=== PATIENT | female | born 1995 | race Caucasian/White ===

== ENCOUNTER 2018-12-27 06:51 | Outpatient (CLI) | payer OTHER ==
--- NOTE | 2018-12-27 08:32 | ULT ---
OB ULTRASOUND: INDICATION: anatomy. FINDINGS: Intrauterine . Gestational age by ultrasound 3 weeks 3 days. BPD 20 weeks 3 days HC 20 weeks 3 days AC 20 weeks 6 days FL 19 weeks 6 days EFW: 348 gm, 20 weeks 4 days. Placenta: Anterior. Presentation: Vertex. heart rate: 146 b.p.m. Amniotic fluid: Within normal range. GENE: 12.9 cm. Cervix length 3.4 cm. Anatomy: Intracranial contents, 4-chamber heart, stomach, kidneys, cord insertion, bladder, spine, lips and no se, extremities, and 3-vessel cord were all imaged. No abnormality identified. IMPRESSION: A 20-week 3-day gestation by ultrasound measurement. No abnormality identified. POS: [facility]
== END 2018-12-27 06:52 | disposition home or self-care (01) ==
LOC: SCSULT 06:51 → BICULT 06:52
PROVIDERS: ATTEND Family Medicine
DX: Z34.92 Encounter for supervision of normal pregnancy, unspecified, second trimester (principal); Z3A.20 20 weeks gestation of pregnancy
CPT/HCPCS: 76805

== ENCOUNTER 2019-01-25 15:15 | Outpatient (CLI) | payer OTHER ==
--- NOTE | 2019-01-25 16:13 | ULT ---
Limited obstetrical ultrasound: 01/25/2019 COMPARISON: 12/27/2018 HISTORY: Evaluate 24 week gestation TECHNIQUE: Multiplanar grayscale sonographic imaging of the gravid uterus obtained. FINDINGS: There is a single intrauterine gestation. presentation is breech. Cervical length is approximately 3.5 cm. Placenta located anteriorly, with no evidence for previa or abruption. heart rate is 149 bpm. Amniotic fluid index is 16.8 cm. The visualized anatomy is unremarkable. anatomy is not fully assessed on this examination and was fully assessed on the 12/27/2018 exam. biometry: BPD 5.9 cm, 24 weeks 2 days Head circumference 22.9 cm, 25 weeks 0 days Abdominal circumference 20.1 cm, 25 weeks 0 days Femur length 4.2 cm, 23 weeks 6 days The average age based on ultrasound is 24 weeks 2 days. Estimated date of delivery is 05/13/2019. Estimated weight is 700 g +/- 1 102 g. The nose/lips, kidneys, stomach, and urinary bladder are unremarkable IMPRESSION: Single intrauterine gestation as detailed above. Transcribed Date/Time: 01/25/2019 4:31 PM
== END 2019-01-25 15:16 | disposition home or self-care (01) ==
LOC: BICULT 15:15
PROVIDERS: ATTEND Family Medicine
DX: Z34.92 Encounter for supervision of normal pregnancy, unspecified, second trimester (principal); Z3A.24 24 weeks gestation of pregnancy
CPT/HCPCS: 76815

== ENCOUNTER 2019-04-12 06:36 | Outpatient (CLI) | payer OTHER ==
--- NOTE | 2019-04-12 07:38 | ULT ---
Obstetric sonogram HISTORY: Macrosomia. Low-lying placenta. FINDINGS: Multiple transabdominal sonographic views of the pelvis show a single intrauterine gestatio n in cephalic presentation. Cervix is closed and 4.0 cm. No gross intracranial abnormalities are apparent. Grade 1 placenta is anterior without evidence of previa. Heart motion at 130 bpm. Amniotic fluid index 15.5. Advanced age limits anatomic detail. Measurements are as follows: Biparietal diameter 35 weeks 0 days. Head circumference 35 weeks 4 days. Abdominal circumference 36 weeks 3 days. Femur length 34 weeks 0 days. Estimated weight 5 lbs. 15 oz. (2702 g). IMPRESSION: Single viable intrauterine gestation. Estimated gestational age based on today's sonogram 35 weeks 2 days. Anterior placenta. No evidence of previa.
== END 2019-04-12 06:37 | disposition home or self-care (01) ==
LOC: BICULT 06:36
PROVIDERS: ATTEND Family Medicine
DX: O36.63X0 Maternal care for excessive fetal growth, third trimester, not applicable or unspecified (principal); Z3A.35 35 weeks gestation of pregnancy
CPT/HCPCS: 76816

== ENCOUNTER 2019-05-04 15:01 | Inpatient (IN) | payer OTHER ==
[~2019-05-04 15:01] MED LIST: Bupivacaine PF 0.5% 30 ML VIAL ONE
[2019-05-04 15:59] VITALS: BMI 40.5
[2019-05-04] MEDS ORDERED: Fentanyl 4 mcg/Bup 0.1% Cadd 100 ML ONE (19:04)
[2019-05-04] MEDS ORDERED: Butorphanol Tartrate 1 MG/ML VIAL SLOW IVP PRN (19:05)
[2019-05-04] MEDS ORDERED: Methylergonovine 0.2 MG/ML VIAL IM PRN (19:05)
[2019-05-04] MEDS ORDERED: Ibuprofen 800 MG TAB PO PRN (19:05)
[2019-05-04] MEDS ORDERED: Promethazine HCl 25 MG/ML VIAL IM PRN ×2 (19:05→20:29)
[2019-05-04] MEDS ORDERED: Acetaminophen 500 MG TAB PO PRN (19:05)
[2019-05-04] MEDS ORDERED: Ondansetron PF 4 MG/2 ML Vial IVP PRN ×2 (19:05→20:29)
[2019-05-04] MEDS ORDERED: Lidocaine 1% (PF) 30 ML VIAL SC PRN (19:05)
[2019-05-04] MEDS ORDERED: hydrALAZINE 20 MG/ML VIAL SLOW IVP PRN (19:05)
[2019-05-04] MEDS ORDERED: Misoprostol 200 MCG TAB PR PRN (19:05)
[2019-05-04] MEDS ORDERED: HYDROcodone/Acetaminophen 5/325 mg Tablet PO PRN (19:05)
[2019-05-04 19:14] LABS: Hemoglobin 13.3 g/dL (12.0-16.0); Mean Corpuscular HGB CONC 34.9 g/dL (32.0-36.0); Mean Corpuscular Hemoglobin 31.7 pg (27.0-31.0); Mean Corpuscular Volume 90.7 fL (78.0-98.0); Mean Platelet Volume 9.4 fL (7.4-10.4); Platelet Count 276 thou/uL (130-400); RBC Distribution Width 13.2 % (11.5-14.5); White Blood Cell (WBC) Count 13.4 thou/uL (4.8-10.8)
[2019-05-04] MEDS ORDERED: Fentanyl 100 MCG/2 ML VIAL ONE (19:47)
[2019-05-04] MEDS ORDERED: Bupivacaine 0.5% 10 ML VIAL ONE (19:47)
[2019-05-04] MEDS: Lactated Ringer's 1,000 ML IV SCH ×2 (20:12→22:07)
[2019-05-04 20:18] LABS: Syphilis Antibody Nonreactive (Nonreactive); Syphilis Antibody Index 0.04 S/CO (<1.00 Non-Reactive)
[2019-05-04] MEDS ORDERED: Acetaminophen 325 MG TAB PO PRN (20:29)
[2019-05-04] MEDS ORDERED: Lactated Ringer's 500 ML IV PRN (20:29)
[2019-05-04] MEDS ORDERED: Bupivacaine 0.25% 10 ML VIAL EPIDURAL SCH (20:29)
[2019-05-04] MEDS ORDERED: Fentanyl 100 MCG/2 ML VIAL I-THECAL SCH (20:29)
[2019-05-04] MEDS ORDERED: Naloxone HCl 0.4 mg/ml Vial IVP PRN ×2 (20:29)
[2019-05-04] MEDS ORDERED: ePHEDrine/0.9% NaCl/PF SYRINGE 50 mg/10 ml SLOW IVP PRN (20:29)
[2019-05-04] MEDS ORDERED: diphenhydrAMINE 50 MG/ML VIAL IVP PRN (20:29)
[2019-05-04] MEDS ORDERED: Fentanyl 4 mcg/Bupivacaine 0.1% Cassette 100 ML EPIDURAL SCH (20:30)
[2019-05-04] MEDS ORDERED: Communication Order-Pharmacy FS SCH (20:30)
[2019-05-04] MEDS ORDERED: NS w/ Oxytocin 10 units 500 ML IVPB SCH (21:30)
[2019-05-04 22:32] LABS: HBSAg Index 0.33 S/CO (0-0.99); Hep B Surf Ag Non-Reactive S/CO (NonReactive)
[2019-05-05] MEDS ORDERED: Fentanyl 4 mcg/Bup 0.1% Cadd 100 ML ONE (02:22)
[2019-05-05] MEDS ORDERED: Lidocaine 1% (PF) 30 ML VIAL ONE (03:19)
[2019-05-05] MEDS ORDERED: NS / Oxytocin 40 units/1000ml 1,000 ML ONE (03:19)
[2019-05-05] MEDS: NS / Oxytocin 40 units/1000ml 1,000 ML IV PRN ×2 (03:46→05:06)
[2019-05-05] MEDS ORDERED: hydrALAZINE 20 MG/ML VIAL SLOW IVP PRN (07:03)
[2019-05-05] MEDS ORDERED: Milk Of Magnesia 30 ML UDCUP PO PRN (07:03)
[2019-05-05] MEDS ORDERED: Bisacodyl 10 MG SUPP PR PRN (07:03)
[2019-05-05] MEDS ORDERED: Adacel (T-DAP) 0.5 ML SYRINGE IM ONE (07:03)
[2019-05-05] MEDS ORDERED: NS / Oxytocin 40 units/1000ml 1,000 ML IV SCH (07:03)
[2019-05-05] MEDS: Ferrous Sulfate 325 MG TAB PO SCH ×2 (08:15→17:51)
[2019-05-05] MEDS: Docusate Calcium (SURFAK) 240 MG CAP PO SCH ×2 (10:12→19:59)
[2019-05-05] MEDS: Lactated Ringer's 1,000 ML IV SCH (14:36)
[2019-05-05] MEDS ORDERED: Ibuprofen 800 MG TAB PO PRN (14:39)
[2019-05-05] MEDS ORDERED: Ibuprofen 800 MG TAB PO SCH (14:45)
[2019-05-05] MEDS ORDERED: Witch Hazel-Glycerin 1 EACH JAR TOP PRN (20:10)
[2019-05-05] MEDS ORDERED: Benzocaine-Menthol 82.5 ML CAN TOP PRN (21:21)
[2019-05-06] MEDS: Docusate Calcium (SURFAK) 240 MG CAP PO SCH (08:41)
[2019-05-06] MEDS: Ferrous Sulfate 325 MG TAB PO SCH (08:42)
[2019-05-06 10:35] VITALS: BP 131/75; TEMP 97.8
--- NOTE | 2019-05-07 08:34 | HP ---
HISTORY OF PRESENT ILLNESS: A 24-year-old white female, G2, P1, at 38 weeks gestation, EDC 05/16/2019, who presents with irregular contractions for the past several days. Earlier today developed regular contractions. Several days ago, she was noted to be 2 cm and now has progressed from 4 to 5 cm in labor and delivery. No rupture of membranes. No complaints of fever. PAST MEDICAL HISTORY: History of clavicular and wrist fracture. SURGICAL HISTORY: None. History of one normal vaginal delivery. FAMILY HISTORY: Unremarkable. SOCIAL HISTORY: She is with one son. Does not smoke or drink. PHYSICAL EXAMINATION: VITAL SIGNS: Stable, afebrile. HEART: Clear. LUNGS: Clear. ABDOMEN: Gravid. Cervix 5 cm. EXTREMITIES: With trace edema. LABORATORY DATA: A-positive, RPR nonreactive, hepatitis B negative, GC chlamydia negative. Rubella immune. ASSESSMENT: 1. Term . 2. Active labor. PLAN: 1. Routine L and D orders. 2. Routine anesthesia orders. 3. Continue to observe probably ruptured membranes in 1 to 2 hours. Job ID: [id number]
--- NOTE | 2019-05-07 10:19 | DN ---
DATE OF PROCEDURE: 05/05/2019 PREOPERATIVE DIAGNOSIS: Term . POSTOPERATIVE DIAGNOSIS: Term . PROCEDURE: Spontaneous vaginal delivery with repair of right labial tear. ANESTHESIA: Epidural. DESCRIPTION OF PROCEDURE: This 24-year-old white female, G2, P1, taken to delivery for completing pushing. Prepped and draped sterilely. Delivered a baby boy with Apgars of 8 at 1 minute and 9 at 5 minutes. Baby did breathe and cry vigorously upon delivery. A right labial 4 cm tear was repaired with 2-0 chromic. Estimated blood loss was 200 mL. Mother and baby did well. Job ID: [id number]
== END 2019-05-06 12:15 | disposition home or self-care (01) | DRG 807 ==
LOC: L&D/OP 15:01 → L&D-LIB 19:05 → 3SW 05-05 14:18
PROVIDERS: ADMIT Family Medicine; ATTEND Family Medicine
PROC: 10E0XZZ Delivery of Products of Conception, External Approach (ICD-10-PCS; principal; 2019-05-05)
PROC: 0HQ9XZZ Repair Perineum Skin, External Approach (ICD-10-PCS; 2019-05-05)
PROC: 10907ZC Drainage of Amniotic Fluid, Therapeutic from Products of Conception, Via Natural or Artificial Opening (ICD-10-PCS; 2019-05-05)
DX: O70.0 First degree perineal laceration during delivery (principal); Z37.0 Single live birth; Z3A.38 38 weeks gestation of pregnancy
CPT/HCPCS: 36415; 51702; 85027; 86780; 86850; 86900; 86901; 87340; 99285; J2001; J3010; J3490; S0020

== ENCOUNTER 2020-01-18 11:35 | Outpatient (CLI) | payer OTHER | END 2020-01-18 11:36 | disposition home or self-care (01) | LOC: DTY/OP 11:35 | PROVIDERS: ATTEND Surgery | DX: E66.01 Morbid (severe) obesity due to excess calories (principal) | CPT/HCPCS: 97802 ==

== ENCOUNTER 2020-02-28 08:04 | Outpatient (CLI) | payer OTHER ==
[2020-02-28 17:15] LABS: BHCG - Serum Negative (NEGATIVE); Pregs Control Background? CLEAR/WHITE (CLR/WHITE); Pregs Control Bar Appear? YES (CONTROL BAR)
[2020-02-28 17:22] LABS: #Eosinphils 0.1 10x3/uL (0.0-0.5); #Monocytes 0.6 10x3/uL (0.0-1.1); #Neutrophils 5.4 10x3/uL (1.5-8.4); %Basophils 0.2 % (0.0-2.0); %Lymphocytes 30.1 % (18.0-47.0); %Monocytes 6.4 % (0.0-10.0); Mean Corpuscular HGB CONC 33.2 G/DL (32.0-36.0); Mean Corpuscular Hemoglobin 29.6 PG (27.0-33.0); Mean Corpuscular Volume 89.1 fl (80.0-100.0); Mean Platelet Volume 10.3 fl (7.4-10.4); Platelet Count 324 10x3/uL (130-400); RBC Distribution Width 12.9 % (11.5-14.5); Red Blood Cell (RBC) Count 4.39 10x6/uL (3.90-5.20); White Blood Cell (WBC) Count 8.7 10x3/uL (4.5-11.0)
[2020-02-28 17:44] LABS: ALT (SGPT) 20 U/L (8-55); AST (SGOT) 14 U/L (5-34); Albumin 4.4 g/dL (3.5-5.0); Alkaline Phosphatase 61 U/L (40-110); Anion Gap 13 mmol/L (10-20); BUN (Urea Nitrogen) 11 mg/dL (7.0-18.7); Bilirubin, Total 0.4 mg/dL (0.2-1.2); Calc. Creatinine Clearance 0 mL/min (70-130); Calcium 8.9 mg/dL (7.8-10.44); Carbon Dioxide 23 mmol/L (22-29); Chloride 107 mmol/L (98-107); Estimated GFR-MDRD Greater than 90; Globulin 2.8 g/dL (2.4-3.5); Glucose 89 mg/dL (70-105); Potassium 4.1 mmol/L (3.5-5.1); Protein, Total 7.2 g/dL (6.0-8.3); Sodium 139 mmol/L (136-145)
--- NOTE | 2020-02-28 17:56 | RAD ---
TWO VIEWS CHEST: 02/28/20 PROVIDED CLINICAL HISTORY: Preop. FINDINGS: Cardiac and mediastinal silhouette is within normal limits. Lungs appear clear. No pleural fluid or p neumothorax apparent. IMPRESSION: No evidence for an acute cardiopulmonary process. POS: [facility]
[2020-02-28 21:08] LABS: Hemoglobin A1c 4.7 % (4.0-6.0)
[2020-02-29 11:54] LABS: SARS-CoV-2 MS2 Positive; SARS-CoV-2 N Gene Negative; SARS-CoV-2 S Gene Negative; SARS-CoV-2 by NAA Not Detected (NotDetected); SARS-CoV-2 orf1ab Negative
== END 2020-02-28 08:05 | disposition home or self-care (01) ==
LOC: LABBT 08:04
PROVIDERS: ATTEND Surgery
DX: Z01.818 Encounter for other preprocedural examination (principal); Z20.828 Contact with and (suspected) exposure to other viral communicable diseases; E66.01 Morbid (severe) obesity due to excess calories
CPT/HCPCS: 71046; 80053; 83036; 84703; 85025; 87635; 93005; 93010; U0003

== ENCOUNTER 2020-02-28 16:30 | Inpatient (IN) | payer OTHER ==
[2020-03-03 09:46] VITALS: BMI 40.9
[2020-03-04] MEDS ORDERED: Bupivacaine/Epinephrine 0.25% 30 ML VIAL ONE (06:32)
[2020-03-04] MEDS ORDERED: Fentanyl 250 MCG/5 ML VIAL ONE (06:57)
[2020-03-04] MEDS ORDERED: Heparin 5,000 UNITS/ML VIAL ONE (06:58)
[2020-03-04] MEDS ORDERED: SUGAMMADEX SODIUM 200 MG/2 ML VIAL ONE (06:58)
[2020-03-04] MEDS ORDERED: Midazolam HCl 2 mg/2 ml Vial ONE (07:11)
[2020-03-04] MEDS ORDERED: Meperidine HCl/PF 25 MG/ML VIAL SLOW IVP PRN (08:25)
[2020-03-04] MEDS ORDERED: Promethazine HCl 25 MG/ML VIAL IM PRN ×3 (08:25→11:26)
[2020-03-04] MEDS ORDERED: Promethazine HCl 25 MG/ML VIAL SLOW IVP PRN (08:25)
[2020-03-04] MEDS ORDERED: Ondansetron HCl/PF 4 MG/2 ML Vial IVP PRN (08:25)
[2020-03-04] MEDS ORDERED: Rocuronium Bromide 10 MG/ML (10ML VIAL) ONE (09:01)
[2020-03-04] MEDS ORDERED: Lidocaine 1% PF 5 ML VIAL ONE (09:01)
[2020-03-04] MEDS ORDERED: Ketorolac Tromethamine 30 MG/ML VIAL ONE (09:01)
[2020-03-04] MEDS ORDERED: Dexamethasone 20 MG/5 ML VIAL ONE (09:01)
[2020-03-04] MEDS ORDERED: PROPOFOL 200 MG/20 ML VIAL ONE (09:01)
[2020-03-04] MEDS ORDERED: PHENYLEPHRINE-NS 100 MCG/ML 10 ML SYRINGE ONE (09:01)
[2020-03-04] MEDS ORDERED: Glycopyrrolate 0.2 MG/ML 5 ML SYRINGE ONE (09:01)
[2020-03-04] MEDS ORDERED: Ondansetron PF 4 MG/2 ML Vial ONE (09:01)
--- NOTE | 2020-03-04 09:19 | OP ---
DATE OF PROCEDURE: 03/04/2020 PREOPERATIVE DIAGNOSES: 1. Morbid obesity with a body mass index of 41. 2. Hyperlipidemia. POSTOPERATIVE DIAGNOSES: 1. Morbid obesity with a body mass index of 41. 2. Hyperlipidemia. 3. Paraesophageal hiatal hernia. PROCEDURES PERFORMED: 1. Laparoscopic sleeve gastrectomy with Ethicon staple line reinforcements and 38-[place] bougie. 2. Paraesophageal hiatal hernia repair without fundoplication or mesh. 3. Esophagogastroduodenoscopy. ANESTHESIA: General. ESTIMATED BLOOD LOSS: Minimal. COMPLICATIONS: None. FINDINGS: Hiatal hernia. DESCRIPTION OF PROCEDURE: The patient was taken to the operating room and laid supine on the operating room table. After general anesthetic was obtained, the arms and legs were double strapped to bariatric table. OG tube was used to decompress the stomach. The abdomen was prepped and draped in a sterile fashion. Left subcostal 5-mm Optiview trocar was placed in usual fashion, and high-flow pneumoperitoneum was obtained. Left and right abdominal 12 mm ports as well as a right subcostal 5 mm port were placed under direct visualization. A 5 mm incision was made at the xiphoid, and the Joseph was used to raise the liver off the GE junction. Short gastrics were taken down from midbody of the stomach to left salvatore of diaphragm using LigaSure. Left salvatore, posterior fundus, and angle of His were completely dissected. Short gastrics were taken down to a distance of 6 cm proximal to the pylorus. A hiatal hernia was found. A circumferential dissection of the esophagus was performed, pulling the fundus back down into the abdominal cavity. The right and left crura posteriorly were isolated. This was facilitated by dissection through the gastrohepatic ligament on the patient's right. A 38 bougie was brought in and its tip left in the antrum of the stomach. Multiple loads of [place] stapling device with Ethicon staple line reinforcements were used to form the sleeve. The first was fired up at the distance of 6 cm proximal to the pylorus, angled up towards the incisura. Care was taken to avoid being too close to the incisura. Multiple loads were then fired up along the bougie. Stomach was transected at the angle of His. Stomach was removed from the left abdominal incision. This fascial defect was closed using GraNee needle and Vicryl tie. Ethibond suture and the Ti-KNOT system were used to close the crura posteriorly with one suture. The bougie was removed. There was no bleeding on the staple line. Joseph retractor was removed under direct visualization without bleeding. The stomach had been removed from the left abdominal incision. This fascial defect was closed using GraNee needle and Vicryl tie. EGD scope was passed through esophagus and stomach to the level of duodenum without obstruction. There was no stricture at the incisura. There was no bleeding on the staple line. No air leakage. EGD scope was used to decompress the stomach, it was pulled and removed. All port sites were infiltrated using local anesthetic. All ports were removed under camera visualization. Pneumoperitoneum was let down. Monocryl was used to close all incisions followed by Dermabond. The patient was sent to Recovery in stable condition. All instrument counts, needle counts, and lap counts were correct. Job ID: [id number]
[2020-03-04] MEDS ORDERED: Promethazine HCl 25 MG/ML VIAL ONE (09:20)
[2020-03-04] MEDS ORDERED: Fentanyl 100 MCG/2 ML VIAL ONE ×3 (09:20→10:24)
[2020-03-04] MEDS ORDERED: diphenhydrAMINE 50 MG/ML VIAL IVP PRN ×2 (09:45→11:26)
[2020-03-04] MEDS ORDERED: diphenhydrAMINE 25 MG CAP PO PRN (09:45)
[2020-03-04] MEDS ORDERED: Naloxone HCl 0.4 mg/ml Vial IV PRN (09:45)
[2020-03-04] MEDS ORDERED: Zolpidem Tartrate 5 MG TAB PO PRN (09:45)
[2020-03-04] MEDS ORDERED: Ondansetron PF 4 MG/2 ML Vial IVP PRN ×2 (09:45→11:26)
[2020-03-04] MEDS ORDERED: fentaNYL Citrate/PF 2,000 MCG in Sodium Chloride 0.9% 60 ML IV PRN (09:45)
[2020-03-04] MEDS ORDERED: diphenhydrAMINE 50 MG/ML VIAL IM PRN (09:45)
[2020-03-04] MEDS ORDERED: Communication Order-Pharmacy FS SCH (09:45)
[2020-03-04] MEDS ORDERED: Ketorolac Tromethamine 30 MG/ML VIAL IVP PRN (09:45)
[2020-03-04] MEDS ORDERED: D5 1/2 NS w/20 mEq KCL 1,000 ML ONE (09:46)
[2020-03-04] MEDS ORDERED: Meperidine HCl/PF 25 MG/ML VIAL ONE (10:01)
[2020-03-04] MEDS ORDERED: Dextrose 50% Abboject 50 ML SYRINGE SLOW IVP PRN (11:26)
[2020-03-04] MEDS ORDERED: hydrALAZINE 20 MG/ML VIAL SLOW IVP PRN (11:26)
[2020-03-04] MEDS ORDERED: Hydrocodone-Acetamin 15 ML UDCUP PO PRN (11:26)
[2020-03-04] MEDS ORDERED: Dextrose 5% in Water 1,000 ML IV PRN (11:26)
[2020-03-04] MEDS: D5 1/2 NS w/20 mEq KCL 1,000 ML IV SCH ×2 (19:44→19:47)
[2020-03-04] MEDS ORDERED: Enoxaparin Sodium 40 MG/0.4 ML SYRINGE SC SCH (21:00)
[2020-03-05 05:38] LABS: #Lymphocytes 2.6 thou/uL (1.20-3.40); #Monocytes 0.9 thou/uL (0.11-0.59); #Neutrophils 7.8 thou/uL (1.40-6.50); %Basophils 0.2 % (0.0-1.0); %Eosinophils 0.1 % (0.0-10.0); %Lymphocytes 23.3 % (21.0-51.0); %Monocytes 7.9 % (0.0-10.0); %Neutrophils 68.5 % (42.0-75.0); Hemoglobin 13.5 g/dL (12.0-16.0); Mean Corpuscular HGB CONC 34.5 g/dL (32.0-36.0); Mean Corpuscular Hemoglobin 31.2 pg (27.0-31.0); Mean Corpuscular Volume 90.3 fL (78.0-98.0); Mean Platelet Volume 7.6 fL (7.4-10.4); Platelet Count 309 thou/uL (130-400); RBC Distribution Width 12.1 % (11.5-14.5); Red Blood Cell (RBC) Count 4.34 mill/uL (4.20-5.40); White Blood Cell (WBC) Count 11.3 thou/uL (4.8-10.8)
[2020-03-05 06:04] LABS: Anion Gap 13 mmol/L (10-20); BUN (Urea Nitrogen) 6 mg/dL (7.0-18.7); Calc. Creatinine Clearance 216 mL/min (70-130); Calcium 8.7 mg/dL (7.8-10.44); Carbon Dioxide 20 mmol/L (22-29); Chloride 107 mmol/L (98-107); Estimated GFR-MDRD Greater than 90; Glucose 108 mg/dL (70-105); Potassium 3.4 mmol/L (3.5-5.1); Sodium 137 mmol/L (136-145)
--- NOTE | 2020-03-05 07:28 | PDOC.GSPN ---
Surgery Progress Note: Subj - Subjective Patient reports: tolerating liquids well, no bowel movement, still having pain Narrative: Patient is a 24 yo female that is s/p day 1 from a laparoscopic gastric sleeve with repair of a small hiatal hernia. She is still having pain and reports that it is mostly localized in the mid epigastric region and in her chest as well. Last night they had to increase her [employer] pump because she was unable to fall asleep due to discomfort. She has some discomfort with deep inspiration. She is tolerating her liquids well and has been getting up and moving around on her own. She denies N/V, shortness of breath, or reflux. Surgery Progress Note: Obj - Vital signs Vital signs: Vital Signs - Most Recent Temp Pulse Resp BP Pulse Ox 98.1 F 92 16 113/71 92 L 03/05/20 03:36 03/05/20 03:36 03/05/20 03:36 03/05/20 03:36 03/05/20 03:36 - Physical Exam General: well developed, moderate pain, obese Neck: no bruits, no nevin distention Cardiovascular: regular rate and rhythm, no murmur Respiratory: clear to auscultation, normal expansion (she has mild pain with deep inspiration) Abdomen: nondistended, positive bowel sounds, appropriately tender Psychiatric: memory intact, oriented to time, oriented to person, oriented to place, speech is normal Wound: dressing clean,dry,intact, healing well Surgery Progress Note: Results - Labs Result Diagrams: 03/05/20 04:54 03/05/20 04:54 Lab results: Laboratory Results - last 12 hr 03/05/20 03/05/20 04:54 04:54 WBC 11.3 H RBC 4.34 Hgb 13.5 Hct 39.2 MCV 90.3 MCH 31.2 H MCHC 34.5 RDW 12.1 Plt Count 309 MPV 7.6 Neutrophils % 68.5 Lymphocytes % 23.3 Monocytes % 7.9 Eosinophils % 0.1 Basophils % 0.2 Neutrophils # 7.8 H Lymphocytes # 2.6 Monocytes # 0.9 H Eosinophils # 0.0 Basophils # 0.0 Sodium 137 Potassium 3.4 L Chloride 107 Carbon Dioxide 20 L Anion Gap 13 BUN 6 L Creatinine 0.70 Estimated GFR (MDRD) Greater than 90 Glucose 108 H Calcium 8.7 Surgery Progress Note: A/P - Plan Plan: Continue liquids as tolerated and get out of bed to move around as much as possible. She has concerns about going home today due to her pain so we will reassess this afternoon and determine whether or not she needs to stay another night. Her incisions are healing well. She will be seen in clinic in 2 weeks for her initial post op f/u.
[2020-03-05] MEDS: Pantoprazole 40 MG VIAL IVP SCH ×2 (09:07→09:09)
[2020-03-05] MEDS ORDERED: Hydrocodone-Acetamin 15 ML UDCUP PO PRN (09:10)
[2020-03-05 12:30] VITALS: BP 133/86; TEMP 98.5
--- NOTE | 2020-03-06 02:19 | DIS ---
DATE OF ADMISSION: 03/04/2020 DATE OF DISCHARGE: 03/05/2020 ADMIT DIAGNOSIS: Morbid obesity. DISCHARGE DIAGNOSIS: Morbid obesity. PROCEDURE: Laparoscopic sleeve gastrectomy by Dr. Fregoso without complication. CONDITION ON DISCHARGE: Improved. STAFF: Dr. Fregoso. HOSPITAL COURSE: On postop day 1, the patient is doing well. She is tolerating liquids. She is ambulatory. She is discharged home. She will follow up with me in 2 weeks. Prescriptions already sent to her pharmacy. Job ID: [id number]
== END 2020-03-05 15:18 | disposition home or self-care (01) | DRG 621 ==
LOC: SURG A 03-04 05:41 → SURG B 03-04 11:26 → EDSTATUS 03-04 16:30
PROVIDERS: ADMIT Surgery; ATTEND Surgery
PROC: 0DB64Z3 Excision of Stomach, Percutaneous Endoscopic Approach, Vertical (ICD-10-PCS; principal; 2020-03-04)
PROC: 0BQT4ZZ Repair Diaphragm, Percutaneous Endoscopic Approach (ICD-10-PCS; 2020-03-04)
PROC: 0DJ08ZZ Inspection of Upper Intestinal Tract, Via Natural or Artificial Opening Endoscopic (ICD-10-PCS; 2020-03-04)
DX: E66.01 Morbid (severe) obesity due to excess calories (principal); Z68.41 Body mass index [BMI] 40.0-44.9, adult; E78.5 Hyperlipidemia, unspecified; K44.9 Diaphragmatic hernia without obstruction or gangrene; Z79.899 Other long term (current) drug therapy
CPT/HCPCS: 36415; 80048; 85025; 88307; 88312; 94760; C9113; J0690; J1100; J1644; J1650; J1885; J2175; J2250; J2405; J2550; J2704; J3010; J3480

== ENCOUNTER 2020-03-08 21:48 | Emergency (ER) | payer OTHER ==
[2020-03-08 22:24] LABS: #Basophils 0.1 thou/uL (0.0-0.2); #Eosinphils 0.1 thou/uL (0.0-0.7); #Lymphocytes 2.1 thou/uL (1.20-3.40); #Monocytes 0.8 thou/uL (0.11-0.59); #Neutrophils 9.1 thou/uL (1.40-6.50); %Basophils 0.7 % (0.0-1.0); %Lymphocytes 17.4 % (21.0-51.0); %Monocytes 6.9 % (0.0-10.0); Mean Corpuscular HGB CONC 34.9 g/dL (32.0-36.0); Mean Corpuscular Hemoglobin 30.9 pg (27.0-31.0); Mean Corpuscular Volume 88.8 fL (78.0-98.0); Mean Platelet Volume 7.3 fL (7.4-10.4); Platelet Count 356 thou/uL (130-400); RBC Distribution Width 11.9 % (11.5-14.5); Red Blood Cell (RBC) Count 4.84 mill/uL (4.20-5.40); White Blood Cell (WBC) Count 12.2 thou/uL (4.8-10.8)
--- NOTE | 2020-03-08 22:26 | RAD ---
XR Chest Pa Lat STANDARD HISTORY: Fever, status post surgery COMPARISON: 02/28/2020 FINDINGS: The heart size is normal. There is a plate of subsegmental atelectatic change in the right midlung. Patchy opacity in the left lower lung may either represent atelectatic change or infiltrate. No pneumothoraces or large effusions are seen. There is no lobar consolidation.
[2020-03-08 22:32] LABS: Bacteria/HPF 2+ HPF (None Seen); Bilirubin Negative (Negative); Blood, Urine Negative (Negative); Clarity Clear (Clear); Glucose, Urine (Dipstick) Normal (Negative); Ketone, Urine 60 mg/dL (Negative); Leukocyte 75 Leu/uL (Negative); Nitrite Negative (Negative); Protein, Urine (Dipstick) 10 mg/dL (Neg-Trace); RBC/HPF 0-3 HPF (0-3); Specific Gravity, Urine 1.012 (1.002-1.036); Squamous Epithelial 0-3 HPF (0-3); Urobilinogen Normal mg/dL (Less than 2)
[2020-03-08 22:44] LABS: ALT (SGPT) 15 U/L (8-55); AST (SGOT) 12 U/L (5-34); Albumin 4.4 g/dL (3.5-5.0); Alkaline Phosphatase 75 U/L (40-110); Anion Gap 19 mmol/L (10-20); BUN (Urea Nitrogen) 16 mg/dL (7.0-18.7); Bilirubin, Total 0.5 mg/dL (0.2-1.2); Calc. Creatinine Clearance 0 mL/min (70-130); Calcium 9.9 mg/dL (7.8-10.44); Carbon Dioxide 21 mmol/L (22-29); Chloride 104 mmol/L (98-107); Estimated GFR-MDRD 73; Globulin 3.8 g/dL (2.4-3.5); Glucose 90 mg/dL (70-105); Potassium 3.9 mmol/L (3.5-5.1); Protein, Total 8.2 g/dL (6.0-8.3); Sodium 140 mmol/L (136-145)
== END 2020-03-08 23:33 | disposition home or self-care (01) ==
LOC: ERS 21:48
DX: N39.0 Urinary tract infection, site not specified (principal); J98.11 Atelectasis; F41.9 Anxiety disorder, unspecified
CPT/HCPCS: 71046; 80053; 81003; 81015; 85025; 87086